=== PATIENT | male | born 1990 | race Caucasian/White ===

== ENCOUNTER 2018-11-22 13:58 | Emergency (ER) | payer MEDICAID, SELFPAY ==
[2018-11-17 11:41] VITALS: BMI 22.3
[2018-11-22 13:59] VITALS: BP 124/73; PULSE 94; RESP 37; TEMP 36.4; O2SAT 100; BMI 20.2
[2018-11-22 14:05] VITALS: O2SAT 100
--- NOTE | 2018-11-22 14:07 | EKG12_ITS ---
Test Reason : CHEST DISCOMFORT Blood Pressure : / mmHG Vent. Rate : 089 BPM Atrial Rate : 089 BPM P-R Int : 148 ms QRS Dur : 084 ms QT Int : 360 ms P-R-T Axes : 071 074 058 degrees QTc Int : 438 ms Poor data quality, interpretation may be adversely affected Normal sinus rhythm Normal ECG Confirmed by VINH HERRERA, FRANCES ([id number]), manager editorial ERICA BANERJEE ([id number]) on 11/25/2018 3:16:32 PM Referred By: GASTON Confirmed By:FRANCES JUSTICE MD
[2018-11-22 14:10] VITALS: O2SAT 100
--- NOTE | 2018-11-22 14:17 | RAD_ITS ---
STUDY: X-RAY CHEST REASON FOR EXAM: Male, 28 years old. TECHNIQUE: 1 view COMPARISON: None. FINDINGS: The lungs are clear and expanded. There is no demonstrated pleural abnormality. Normal size heart. Normal mediastinum and jose armando. Normal visualized pulmonary arteries. Normal visualized aortic arch and descending thoracic aorta. Normal visualized thoracic spine. Normal visualized ribs, clavicles, and shoulders. There is no demonstrated abnormality of the visualized soft tissue structures of the upper abdomen. RAD/Chest 1 View (Portable) IMPRESSION: Normal x-ray examination of the chest. Electronically Signed: Karlee Man, at 14:53 EST Tel , Service support ,
[2018-11-22 14:18] LABS: Absolute Lymphocyte Count 1.39 X10^3/ul (0.83-4.51); Absolute Neutrophil Count 4.6 X10^3/uL (2.0-7.7); Basophil# 0.02 X10^3/uL; Basophil% 0.3 % (0-1); Eosinophil# 0.07 X10^3/uL; Eosinophils% 1.1 % (0-5); Hematocrit 43.8 % (40-54); Hemoglobin 15.2 g/dl (13.0-16.5); Lymphocyte # 1.39 X10^3/ul (4.0); Lymphocyte % 21.4 % (19-41); Mean Corp Hgb Conc 34.7 g/gl (32-36); Mean Corpuscular Hgb 30.9 pg (27.0-32.0); Mean Platelet Vol. 12.5 fl (6.2-12.0); Monocyte# 0.41 X10^3/uL; Monocyte% 6.3 % (0-10); Neutrophil % 70.7 % (47-70); POSITIVE COUNT NO; POSITIVE DIFFERENTIAL NO; POSITIVE MORPHOLOGY NO; Platelet Count 183 K/mm3 (150-450); RBC Distribution Width CV 12.9 % (11.6-14.6); RBC Distribution Width SD 41.8 fl (35.1-43.9); Red Blood Count 4.92 M/mm3 (4.6-6.2); White Blood Count 6.5 K/mm3 (4.4-11.0)
[2018-11-22 14:25] LABS: Partial Thromboplast Time 28.3 Seconds (24.1-36.2); Prothrombin Time (Protime)PT. 13.3 SECONDS (11.7-14.9)
[2018-11-22 14:30] LABS: Base Excess 4 mmol/L (-2 to +2); Bicarbonate 28.7 mmol/L (22-26); Blood Gas Specimen Type ART; O2 Delivery Device NRB Mask; PO2 551 mmHG (75-100); SITE R Brachial; SO2 100 % (95-99); Time Given 1420; Total Carbon Dioxide 30 mmol/L; pCO2 44.3 mmHg (35-45); pH 7.42 (7.35-7.45)
[2018-11-22 14:30] LABS: Anion Gap 12 (5-15); BUN 14 mg/dL (7-18); BUN/Creat Ratio 9.9 RATIO (10-20); Calcium,Total 9.1 mg/dL (8.5-10.1); Chloride 110 mmol/L (98-107); Creatinine, Serum 1.42 mg/dL (0.70-1.30); EST Glomerular Filtration Rate 63 mL/min (>60); Est Glom Filt Rate - Afr Amer 76 mL/min (>60); Glucose 101 mg/dL (74-106); Potassium 3.7 mmol/L (3.5-5.1); Sodium Level 144 mmol/L (136-145)
--- NOTE | 2018-11-22 14:39 | RAD_ITS ---
STUDY: X-RAY - CERVICAL SPINE REASON FOR EXAM: Male, 28 years old. TECHNIQUE: 2 view(s) of the cervical spine were obtained. COMPARISON: None FINDINGS: Normal anterior atlantoaxial articulation. Normal odontoid process. Normal cervical lordosis. Normal vertebral bodies and endplates. Normal disc space heights. The prevertebral space and air column are unremarkable. RAD/Cerv Spine 2 or 3 Views IMPRESSION: Normal x-ray examination of the visualized cervical spine. Electronically Signed: Karlee Man, at 15:02 EST Tel , Service support ,
[2018-11-22 15:03] LABS: Carboxyhemoglobin Frac (CO) 3.8 % (0.0-1.5)
[2018-11-22 15:06] VITALS: BP 139/89; PULSE 83; RESP 16; O2SAT 100
[2018-11-22 15:38] LABS: Lactic Acid 3.1 mmol/L (0.4-2.0)
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
--- NOTE | 2018-11-22 15:46 | ED.RN ---
LAB CALLS WITH CRITICAL RESULT, LACTIC ACID 3.1, DR. ABAD MADE AWARE.
[2018-11-22 16:07] VITALS: BP 132/91; PULSE 80; RESP 16; O2SAT 100
--- NOTE | 2018-11-22 16:41 | ED.VISSUMM ---
- ER Visit Summary Date of Service: 11/22/18 Chief Complaint: [] History of Present Illness: The patient is a 28 M [] Physical Examination: [] Test Results: [] Emergency Department Course and Treatment: [] Treatment Plan: [] Disposition: [] Impression: [] This note was generated with [employer] dictation software. It may contain incorrect words, spelling, and punctuation that were not noted in review of the chart prior to signing ED Disposition - Plan for ED Patient: Disposition: Against Medical Advice Chief Complaint: Shortness of Breath
--- NOTE | 2018-11-22 16:47 | ED.DCSUM_ITS ---
- ER Visit Summary Date of Service: 11/22/18 Chief Complaint: [] History of Present Illness: The patient is a 28 M [] Physical Examination: [] Test Results: [] Emergency Department Course and Treatment: [] Treatment Plan: [] Disposition: [] Impression: [] This note was generated with [employer] dictation software. It may contain incorrect words, spelling, and punctuation that were not noted in review of the chart prior to signing ED Disposition - Plan for ED Patient: Disposition: Against Medical Advice Chief Complaint: Shortness of Breath
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
[2018-11-22 16:55] VITALS: BP 123/88; PULSE 76; RESP 18; O2SAT 99
[2018-11-22 18:12] LABS: Reflex Lactate? Y
== END 2018-11-22 16:55 | disposition left against medical advice (07) ==
PROVIDERS: Emergency Provider Emergency Medicine; Family Provider Internal Medicine; PCP Internal Medicine
DX: J70.5 Respiratory conditions due to smoke inhalation (principal); E87.2 Acidosis; J45.909 Unspecified asthma, uncomplicated
CPT/HCPCS: 36600; 71045; 72040; 80048; 80320; 82375; 82803; 83605; 85025; 85610; 85730; 93005; 99285; A4216; G0480

== ENCOUNTER 2019-01-31 17:14 | Emergency (ER) | payer SELFPAY ==
[2019-01-31 17:16] VITALS: BP 134/81; PULSE 91; RESP 18; TEMP 37.3; O2SAT 100; BMI 21.5
--- NOTE | 2019-01-31 17:53 | ED.DEP ---
ED Disposition - Plan for ED Patient: Instructions: Understanding STDs Referrals: Dinorah Lucas MD [Primary Care Provider] -
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
[2019-01-31 19:48] LABS: HIV - WCH Non-Reactive (Nonreactive)
[2019-01-31 20:14] LABS: Chlamydia Trachomatis by PCR Negative (Negative); Neisserai gonorrhoeae by PCR Negative (Negative); Probe Check PASS; Sample Adequacy Control PASS; Specimen Processing Control PASS
== END 2019-01-31 18:23 | disposition home or self-care (01) ==
LOC: ED 18:12
PROVIDERS: Emergency Provider Emergency Medicine
DX: Z20.2 Contact with and (suspected) exposure to infections with a predominantly sexual mode of transmission (principal)
CPT/HCPCS: 36415; 86703; 87491; 87591; 99282

== ENCOUNTER 2020-07-24 04:35 | Emergency (ER) | payer MEDICAID, SELFPAY ==
[2020-07-24 04:36] VITALS: BP 133/79; PULSE 82; RESP 16; TEMP 36.7; O2SAT 98; BMI 23.0
--- NOTE | 2020-07-24 05:31 | ED.VIS.GEN ---
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 Patient states he feels that he has had a hemorrhoid about the size of a grape on his rectum for about 2 weeks. He states he has been straining to have bowel movements and has been taking a stool softener roughly every other day. He states he feels feels a little constipated. He had some small amount of bleeding with a bowel movement this morning which triggered him to come to the emergency room. He states he never prepped with hemorrhoids in the past. He denies any other symptoms at this time. He does not take any other medications. Prior similar symptoms: No Past Medical History - Allergies and Home Meds Allergies/Adverse Reactions: Allergies Sulfa (Sulfonamide Antibiotics) Allergy (Verified 07/24/20 04:37) Other clindamycin Adverse Reaction (Verified 07/24/20 04:37) Nausea/Vom/Diarrhea sulfamethoxazole [From Bactrim] Adverse Reaction (Verified 07/24/20 04:37) Nausea/Vom/Diarrhea trimethoprim [From Bactrim] Adverse Reaction (Verified 07/24/20 04:37) Nausea/Vom/Diarrhea Primary Care Physician: Care Physician,No Primary [Primary Care Provider] - Past Medical History: - - Tourette's Surgical History: no surgical history, noncontributory Smoking Status: Current every day smoker Review of Systems General: Denies: Chills, Fever Cardiovascular: Denies: Chest pain, Palpitations Respiratory: Denies: Dyspnea, Cough Gastrointestinal: Reports: Constipation, - - Rectal pain, blood with wiping. Denies: Abdominal pain, Nausea, Vomiting, Diarrhea, Melena, Hematochezia Genitourinary: Denies: Dysuria, Hematuria, Frequency Musculoskeletal: Denies: Back pain, Extremity Pain Skin: Denies: Rash, Wounds Neurological: Denies: Headache, Weakness, Numbness Physical Exam Vital Signs/Narrative: Vital Signs Temp Pulse Resp BP Pulse Ox 07/24/20 04:36 98.1 F 82 16 133/79 H 98 Inital Vital Signs reviewed: Yes General: Well nourished, Well developed, No Acute Distress Head: Normocephalic, Atraumatic Eyes: Perrl, EOMI ENT: Moist mucous membranes, No rhinorrhea Neck: Supple, Nontender Cardiovascular: Regular rate, Regular rhythm Respiratory: No distress Abdomen: Soft, Nontender Rectal: Tenderness, - - Patient has a large quarter sized external hemorrhoid present. Not currently thrombosed. No active bleeding. It is tender to palpation. No signs of abscess. No surrounding erythema Back: Nontender, Normal Inspection Extremities: Nontender, No edema Skin: Normal color, No rash Neurological: Alert, Oriented x3 Psychological: Normal affect, Normal Mood Diagnostic/Tx/Re-eval - Medical Decision Making Patient is evaluated for rectal pain. He had blood with wiping. On exam patient has a external hemorrhoid. Is quite tender palpation. Does not appear to be thrombosed and is not a candidate for bedside incision at this time. 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 He will be treated symptomatically and given surgery for follow-up. Patient is counseled on regular use of Colace, Anusol H and sits baths. He is given Motrin for pain control be given a short course of [place] as needed. Instructed to avoid any type of straining with bowel movements. He is counseled on signs and symptoms require return the emergency room. He verbalizes agreement understand this plan. He is discharged home in stable condition. ED Disposition - Plan for ED Patient: Disposition: Home or Assisted Living Diagnosis: External hemorrhoid, bleeding Instructions: ED Hemorrhoids Prescriptions: Hydrocortisone [Anusol Hc] 25 mg RECTAL BID PRN PRN #10 suppos. PRN Reason: Hemorrhoids Prescription Printed Ibuprofen [Motrin] 600 mg PO Q6H PRN PRN #20 tab PRN Reason: Pain Score 1-10/10 Prescription Printed Hydrocodone Bitart/Apap 5-325 [[place] 5MG-325MG] 1 tab PO TID PRN PRN 2 Days #6 tab PRN Reason: Pain Prescription Printed Referrals: Richard Patel MD [STAFF PHYSICIAN] - Additional Instructions: Try to perform sitz bath twice a day. Is important you take stool softener 100 mg of Colace twice a day to keep your stools very soft and prevent any straining with bowel movements. Return the emergency room with worsening symptoms otherwise follow-up with surgery for further evaluation.
[2020-07-24] MEDS: Ibuprofen 600 MG Tablet PO (05:44)
== END 2020-07-24 05:54 | disposition home or self-care (01) ==
LOC: ED 05:48
PROVIDERS: Emergency Provider Emergency Medicine
DX: K64.4 Residual hemorrhoidal skin tags (principal); F17.200 Nicotine dependence, unspecified, uncomplicated
CPT/HCPCS: 99283